=== PATIENT | female | born 1950 | race Caucasian/White ===

== ENCOUNTER 2023-02-09 18:39 | Emergency (ER) | payer MEDICARE ==
[~2023-02-09] VITALS: Ht 160 cm; Wt 62.3 kg
[2023-02-09] MEDS ORDERED: ROPI2TAB26 PO (20:04)
[2023-02-09] MEDS ORDERED: METF-446 PO (20:04)
[2023-02-09] MEDS ORDERED: FLUO20CA36 PO (20:15)
[2023-02-09] MEDS ORDERED: HYDR-3831 PO (20:15)
[2023-02-09] MEDS ORDERED: CYCL10TA16 PO (20:15)
[2023-02-09] MEDS ORDERED: THEO400T3 PO (20:15)
[2023-02-09] MEDS ORDERED: ALBU18HF12 PO (20:15)
[2023-02-09 20:16] LABS: GLUCOMETER DEV NAME(LOC) ERT.5; GLUCOSE,POINT OF CARE 143 MG/DL (70-110)
[2023-02-09] MEDS: TraMADol HCL 50 MG TABLET PO ONE (22:09)
[2023-02-09 22:34] VITALS: BP 133/84
[2023-02-09] MEDS ORDERED: IBUP-1492 PO (22:35)
[2023-02-10] MEDS: IBUPROFEN 600 MG TABLET PO ONE
== END 2023-02-10 00:52 | disposition home or self-care (01) ==
LOC: EMS 18:48
DX: S82.002A Unspecified fracture of left patella, initial encounter for closed fracture (principal); M25.562 Pain in left knee; E11.9 Type 2 diabetes mellitus without complications; F17.210 Nicotine dependence, cigarettes, uncomplicated; Z88.0 Allergy status to penicillin; W01.0XXA Fall on same level from slipping, tripping and stumbling without subsequent striking against object, initial encounter; Y93.E2 Activity, laundry; Y92.89 Other specified places as the place of occurrence of the external cause; Y99.8 Other external cause status
CPT/HCPCS: 29505; 82962; 99283

== ENCOUNTER 2023-03-01 16:27 | Emergency (ER) | payer MEDICARE ==
[~2023-03-01] VITALS: Ht 157.5 cm; Wt 62.3 kg
[~2023-03-01 16:27] MED LIST: ALBU18HF12 PO; CYCL10TA16 PO; FLUO20CA36 PO; HYDR-3831 PO; IBUP-1492 PO; METF-446 PO; ROPI2TAB26 PO; THEO400T3 PO
[2023-03-01 16:43] VITALS: BP 118/72
[2023-03-01 16:46] LABS: GLUCOMETER DEV NAME(LOC) ERT.5; GLUCOSE,POINT OF CARE 224 MG/DL (70-110)
== END 2023-03-01 18:33 | disposition home or self-care (01) ==
LOC: EMS 16:29
DX: S82.002A Unspecified fracture of left patella, initial encounter for closed fracture (principal); M25.462 Effusion, left knee; E11.9 Type 2 diabetes mellitus without complications; F17.210 Nicotine dependence, cigarettes, uncomplicated; Z88.0 Allergy status to penicillin; X58.XXXA Exposure to other specified factors, initial encounter; Y93.89 Activity, other specified; Y92.89 Other specified places as the place of occurrence of the external cause; Y99.8 Other external cause status
CPT/HCPCS: 82962; 93971; 99284